=== PATIENT | female | born 1990 | race Hispanic/Latino ===

== ENCOUNTER 2018-03-27 07:57 | Observation (INO) | payer OTHER ==
[2018-03-27 08:06] VITALS: BMI 19.2
--- NOTE | 2018-03-27 08:19 | ED PDOC ---
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 was cutting avocado and cut her left 4th and 5th fingers. No numbness. Some tingles on the tips. Has pain on movement. No injury elsewhere. Last meal yesterday night. Tetnus utd. Past Medical History Reviewed: Nursing Documentation, Vital Signs Vital Signs: Last Vital Signs Temp 98.2 F 03/27/18 08:05 Pulse 114 H 03/27/18 08:05 Resp 18 03/27/18 08:05 BP 141/96 H 03/27/18 08:05 Pulse Ox 97 03/27/18 08:05 - Medical History PMH: No Chronic Diseases - Surgical History Surgical History: No Surg Hx - Family History Family History: States: Unknown Family Hx - Living Arrangements Living Arrangements: With Family - Immunization History Hx Tetanus Toxoid Vaccination: Yes (WITHIN 5 YRS) - Home Medications Home Medications: Ambulatory Orders Medication Instructions Recorded No Known Home Med 03/27/18 - Allergies Allergies/Adverse Reactions: Allergies Allergy/AdvReac Type Severity Reaction Status Date / Time No Known Allergies Allergy Verified 03/27/18 08:09 Review of Systems Constitutional: Negative for: Weakness Cardiovascular: Negative for: Chest Pain Respiratory: Negative for: Shortness of Breath Musculoskeletal: Positive for: Hand Pain. Negative for: Neck Pain, Shoulder Pain, Arm Pain, Leg Pain, Foot Pain Neurological: Negative for: Weakness, Numbness, Dizziness Physical Exam - Reviewed Nursing Documentation Reviewed: Yes Vital Signs Reviewed: Yes - Physical Exam Appears: Positive for: Non-toxic, No Acute Distress Head Exam: Positive for: ATRAUMATIC, NORMAL INSPECTION, NORMOCEPHALIC Skin: Positive for: Normal Color, Warm, DRY Neck: Positive for: Normal, Painless ROM Cardiovascular/Chest: Positive for: Regular Rate, Rhythm Respiratory: Positive for: CNT, Normal Breath Sounds Pulses-Radial (L): 2+ Extremity: Positive for: Tenderness (L 4th and 5th digits lacerations on ventral : 4th between PIP joint and DIP anastacia 2 cm deep angulated with tendon partially lacerated; 5th is above DIP joint 2 cm deep angulated.), Capillary Refill (less then 2 seconds ). Negative for: Normal ROM (limited at L 4th and 5th digits due to pain and possible tendon involvement from laceration; limited abduction) Neurologic/Psych: Positive for: Alert, Oriented - ECG O2 Sat by Pulse Oximetry: 97 Pulse Ox Interpretation: Normal - Radiology X-Ray: Interpreted by Me, Viewed By Me X-Ray Interpretation: No Acute Disease - Progress ED Course And Treament: 810: Spoke with Dr. Collins. He reviewed the images of pt. finger. Considering exam and images, he will take pt. to the OR for evaluation and treatment. 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 Will see pt. for Dr. Collins. Spoke with Dr. Arevalo. Will admit per Dr. Collins recommendation. Disposition - Clinical Impression Clinical Impression: Finger laceration involving tendon - Patient ED Disposition Is Patient to be Admitted: No Counseled Patient/Family Regarding: Studies Performed, Diagnosis - Disposition Disposition Time: 08:47 Condition: FAIR - Pt Status Changed To: Hospital Disposition Of: Observation - POA Present On Arrival: Falls Or Trauma
[2018-03-27 08:49] LABS: ALB/GLOB RATIO 1.4 (1.0-2.1); ALBUMIN 4.7 g/dL (3.5-5.0); ALT/SGPT 25 U/L (9-52); AST/SGOT 26 U/L (14-36); BLOOD UREA NITROGEN 18 mg/dl (7-17); CALCIUM 9.6 mg/dL (8.4-10.2); GFR AFRICAN-AMERICAN > 60; GFR NON-AFRICAN AMERICAN > 60
[2018-03-27 08:52] LABS: BASO % 0.2 % (0.0-2.0); EOS # 0.2 K/uL (0.0-0.7); EOS % 4.1 % (0.0-4.0); HEMOGLOBIN 12.5 g/dL (12.0-16.0); LYMPH # 2.2 K/uL (1.0-4.3); LYMPH % 54.3 % (20.0-40.0); MEAN CELL VOLUME 94.6 fl (81.0-99.0); MEAN CORPUSCULAR HGB CONC 33.8 g/dL (33.0-37.0); MEAN PLATELET VOLUME 9.7 fl (7.2-11.7); MONO # 0.3 K/uL (0.0-0.8); MONO % 7.7 % (0.0-10.0); NEUT # 1.4 K/uL (1.8-7.0); NEUT % 33.7 % (50.0-75.0); RBC 3.91 Mil/uL (3.80-5.20); RED CELL DISTRIBUTION WIDTH 12.7 % (11.5-14.5)
[2018-03-27 08:58] LABS: INR 1.1 (0.9-1.2); PROTHROMBIN TIME 11.9 Seconds (9.8-13.1)
[2018-03-27] MEDS ORDERED: Bupivacaine HCl 0.25% PF (30 ml) Inj ONE ×2 (08:59→09:59)
[2018-03-27] MEDS ORDERED: ceFAZolin IV 2 gm in Dextrose 0 GM/0 ML BAG IVPB ONE (08:59)
[2018-03-27] MEDS ORDERED: Lidocaine 2% MPF (5 ml) Inj ONE ×2 (08:59→09:59)
--- NOTE | 2018-03-27 09:54 | RAD ---
PROCEDURE: Left Hand Radiographs. HISTORY: pain and lac COMPARISON: None. FINDINGS: BONES: No acute fracture. JOINTS: Unremarkable. SOFT TISSUES: No radiopaque foreign body. OTHER FINDINGS: None. IMPRESSION: No demonstrated fracture, dislocation or evidence of radiopaque foreign body.
[2018-03-27] MEDS ORDERED: Propofol 10 mg/ml Inj (20 ML) ONE (10:07)
[2018-03-27] MEDS ORDERED: Midazolam 2 MG/2 ML VIAL ONE (10:07)
[2018-03-27] MEDS ORDERED: Lidocaine 2% MPF (5 ml) Inj INJ ONE (10:35)
[2018-03-27] MEDS ORDERED: Bupivacaine 0.25% Inj(30mL) IJ ONE (10:35)
[2018-03-27] MEDS ORDERED: Lactated Ringer's 1,000 ML IV ONE (10:46)
--- NOTE | 2018-03-27 11:23 | PCM.SURG1 ---
Surgeon's Initial Post Op Note - Surgeon's Notes Surgeon: Dr. Cervantes Human Resources Analyst: Dr. Call Type of Anesthesia: IV Sedation Anesthesia Administered By: Volodymyr Pre-Operative Diagnosis: Left 4th and 5th digit laceration Operative Findings: same, no injury to underlying tendons Post-Operative Diagnosis: same Operation Performed: Left 4th and 5th digit wound exploration and laceration repair Specimen/Specimens Removed: none Estimated Blood Loss: EBL {In ML}: 5 Blood Products Given: N/A Drains Used: No Drains Post-Op Condition: Good Date of Surgery/Procedure: 03/27/18 Time of Surgery/Procedure: 11:22
[2018-03-27 11:34] VITALS: TEMP 97.7; O2SAT 100
--- NOTE | 2018-03-27 11:35 | CP.PCM.CON ---
History of Present Illness - History of Present Illness History of Present Illness: Plastic Surgery - dr. Collins 27 yo F w/ no PMH who presents to ed after cutting her fingers accidently while she was cutting an avocado approx 1 hour ago today. Pt complains of pain in the Left 4th /5th digits at site of laceration. she has full ROM in the 4th/ 5th digits and complains of some tingling in the tips of the fingers. She denies any loss of sensation or loss of range of motion. 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 Review of Systems - Review of Systems All systems: reviewed and no additional remarkable complaints except (as per HPI ) Past Patient History - Past Social History Smoking Status: Never Smoked - PSYCHIATRIC Hx Substance Use: No - SURGICAL HISTORY Hx Surgeries: No - ANESTHESIA Hx Anesthesia: No Meds Allergies/Adverse Reactions: Allergies Allergy/AdvReac Type Severity Reaction Status Date / Time No Known Allergies Allergy Verified 03/27/18 08:09 - Medications Medications: Current Medications Acetaminophen (Tylenol 325mg Tab) 650 mg PO ONCE PRN PRN Reason: Pain, moderate (4-7) Ondansetron HCl (Zofran Inj) 4 mg IVP ONCE PRN PRN Reason: Nausea/Vomiting Stop: 03/27/18 13:22 Physical Exam - Constitutional Appears: No Acute Distress - Head Exam Head Exam: ATRAUMATIC, NORMAL INSPECTION, NORMOCEPHALIC - Eye Exam Eye Exam: Normal appearance - Respiratory Exam Respiratory Exam: NORMAL BREATHING PATTERN. absent: Respiratory Distress - Extremities Exam Additional comments: Left hand w/ approx 1cm laceration to the ventral 4th digit and 1.5com laceration to the ventral 5th digit, no obvious injury to the tendon appreciated - Neurological Exam Neurological exam: Alert, Oriented x3 - Psychiatric Exam Psychiatric exam: Normal Affect, Normal Mood - Skin Skin Exam: Dry, Normal Color, Warm Results - Vital Signs Recent Vital Signs: Last Vital Signs Temp 98.9 F 03/27/18 09:31 Pulse 89 03/27/18 09:31 Resp 19 03/27/18 09:31 BP 125/79 03/27/18 09:31 Pulse Ox 99 03/27/18 09:31 - Labs Result Diagrams: 03/27/18 08:30 03/27/18 08:30 Labs: Laboratory Results - last 24 hr 03/27/18 03/27/18 03/27/18 08:30 08:30 08:30 WBC 4.0 L RBC 3.91 Hgb 12.5 Hct 36.9 MCV 94.6 MCH 32.0 H MCHC 33.8 RDW 12.7 Plt Count 224 MPV 9.7 Neut % (Auto) 33.7 L Lymph % (Auto) 54.3 H [place] % (Auto) 7.7 Eos % (Auto) 4.1 H Baso % (Auto) 0.2 Neut # (Auto) 1.4 L Lymph # (Auto) 2.2 [place] # (Auto) 0.3 Eos # (Auto) 0.2 Baso # (Auto) 0.0 PT 11.9 INR 1.1 APTT 40.0 H Sodium 141 Potassium 4.1 Chloride 106 Carbon Dioxide 23 Anion Gap 16 BUN 18 H Creatinine 0.6 L Est GFR ( Amer) > 60 Est GFR (Non-Af Amer) > 60 Random Glucose 81 Calcium 9.6 Total Bilirubin 1.6 H AST 26 ALT 25 Alkaline Phosphatase 42 Total Protein 8.1 Albumin 4.7 Globulin 3.4 Albumin/Globulin Ratio 1.4 Assessment & Plan - Assessment and Plan (Free Text) Assessment: 27yo F w/ Left 4th and 5th digit laceration -OR exploration of wounds, possible tendon repair, laceration repair -D/C home post-op with pain medication, cover hand with plastic bag while showering, and F/U in office [address] eddie Call PGY4
[2018-03-27 12:11] VITALS: RESP 12
--- NOTE | 2018-03-27 12:24 | CP.PCM.HP ---
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 Patient is HD stable, scheduled for OR with Dr. Collins. Pt is low risk for low risk procedure. No acute distress. ROS: Per HPI, all other systems reviewed and neg PMH: denies PSH: denies FH: denies SH: denies tobacco, ETOH, IVDU, works as OT NKDA Vitals Reviewed GEN: WDWN, alert, cooperative HEENT: NCAT, PERRL, EOMI HEART: RRR, +S1S2, NO MRG LUNG: CTAB, NO WRR ABD: soft, NT, ND, No HSM, No masses EXT: normal pedal pulses, normal capillary refill. LACERATION 4TH 5TH LEFT METACARPALS. DRESSINGS C/D/I NEURO: awake, alert, no focal deficits SKIN: warm, dry PSYCH: normal mood, normal affect LABS Most Recent Lab Values WBC 4.0 K/uL (4.8-10.8) L 03/27/18 08:30 RBC 3.91 Mil/uL (3.80-5.20) 03/27/18 08:30 Hgb 12.5 g/dL (12.0-16.0) 03/27/18 08:30 Hct 36.9 % (34.0-47.0) 03/27/18 08:30 MCV 94.6 fl (81.0-99.0) 03/27/18 08:30 MCH 32.0 pg (27.0-31.0) H 03/27/18 08:30 MCHC 33.8 g/dL (33.0-37.0) 03/27/18 08:30 RDW 12.7 % (11.5-14.5) 03/27/18 08:30 Plt Count 224 K/uL (130-400) 03/27/18 08:30 MPV 9.7 fl (7.2-11.7) 03/27/18 08:30 Neut % (Auto) 33.7 % (50.0-75.0) L 03/27/18 08:30 Lymph % (Auto) 54.3 % (20.0-40.0) H 03/27/18 08:30 [place] % (Auto) 7.7 % (0.0-10.0) 03/27/18 08:30 Eos % (Auto) 4.1 % (0.0-4.0) H 03/27/18 08:30 Baso % (Auto) 0.2 % (0.0-2.0) 03/27/18 08:30 Neut # (Auto) 1.4 K/uL (1.8-7.0) L 03/27/18 08:30 Lymph # (Auto) 2.2 K/uL (1.0-4.3) 03/27/18 08:30 Hunt # (Auto) 0.3 K/uL (0.0-0.8) 03/27/18 08:30 Eos # (Auto) 0.2 K/uL (0.0-0.7) 03/27/18 08:30 Baso # (Auto) 0.0 K/uL (0.0-0.2) 03/27/18 08:30 PT 11.9 Seconds (9.8-13.1) 03/27/18 08:30 INR 1.1 (0.9-1.2) 03/27/18 08:30 APTT 40.0 Seconds (25.6-37.1) H 03/27/18 08:30 Sodium 141 mmol/l (132-148) 03/27/18 08:30 Potassium 4.1 MMOL/L (3.6-5.0) 03/27/18 08:30 Chloride 106 mmol/L (98-107) 03/27/18 08:30 Carbon Dioxide 23 mmol/L (22-30) 03/27/18 08:30 Anion Gap 16 (10-20) 03/27/18 08:30 BUN 18 mg/dl (7-17) H 03/27/18 08:30 Creatinine 0.6 mg/dl (0.7-1.2) L 03/27/18 08:30 Est GFR ( Amer) > 60 03/27/18 08:30 Est GFR (Non-Af Amer) > 60 03/27/18 08:30 Random Glucose 81 mg/dL (65-105) 03/27/18 08:30 Calcium 9.6 mg/dL (8.4-10.2) 03/27/18 08:30 Total Bilirubin 1.6 mg/dl (0.2-1.3) H 03/27/18 08:30 AST 26 U/L (14-36) 03/27/18 08:30 ALT 25 U/L (9-52) 03/27/18 08:30 Alkaline Phosphatase 42 U/L (38-126) 03/27/18 08:30 Total Protein 8.1 G/DL (6.3-8.2) 03/27/18 08:30 Albumin 4.7 g/dL (3.5-5.0) 03/27/18 08:30 Globulin 3.4 gm/dL (2.2-3.9) 03/27/18 08:30 Albumin/Globulin Ratio 1.4 (1.0-2.1) 03/27/18 08:30 IMAGING STUDIES HAND XR NO FX ASSESSMENT AND PLAN 27 year old female no past medical history presents to the ED after sustaining an acute, severe laceration to her L 4th and 5th metacarpals associated with mild tingling, while cutting an 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 Patient is HD stable, scheduled for OR with Dr. Collins. Pt is low risk for low risk procedure. No acute distress. Hand Laceration - OR with Dr. Collins - NV intact - pain control - likely DC home today with follow up Surgery and PCP in one week. IF PATIENT IS DISCHARGED HOME THIS WILL ALSO SERVE DISCHARGE SUMMARY. Present on Admission - Present on Admission Any Indicators Present on Admission: No Past Patient History - Past Social History Smoking Status: Never Smoked - PSYCHIATRIC Hx Substance Use: No - SURGICAL HISTORY Hx Surgeries: No - ANESTHESIA Hx Anesthesia: No Meds Allergies/Adverse Reactions: Allergies Allergy/AdvReac Type Severity Reaction Status Date / Time No Known Allergies Allergy Verified 03/27/18 08:09 Results - Vital Signs Recent Vital Signs: Last Vital Signs Temp 97.7 F 03/27/18 11:45 Pulse 54 L 03/27/18 11:45 Resp 15 03/27/18 11:45 BP 95/55 L 03/27/18 11:45 Pulse Ox 100 03/27/18 11:45 - Labs Result Diagrams: 03/27/18 08:30 03/27/18 08:30 Labs: Laboratory Results - last 24 hr 03/27/18 03/27/18 03/27/18 08:30 08:30 08:30 WBC 4.0 L RBC 3.91 Hgb 12.5 Hct 36.9 MCV 94.6 MCH 32.0 H MCHC 33.8 RDW 12.7 Plt Count 224 MPV 9.7 Neut % (Auto) 33.7 L Lymph % (Auto) 54.3 H [place] % (Auto) 7.7 Eos % (Auto) 4.1 H Baso % (Auto) 0.2 Neut # (Auto) 1.4 L Lymph # (Auto) 2.2 [place] # (Auto) 0.3 Eos # (Auto) 0.2 Baso # (Auto) 0.0 PT 11.9 INR 1.1 APTT 40.0 H Sodium 141 Potassium 4.1 Chloride 106 Carbon Dioxide 23 Anion Gap 16 BUN 18 H Creatinine 0.6 L Est GFR ( Amer) > 60 Est GFR (Non-Af Amer) > 60 Random Glucose 81 Calcium 9.6 Total Bilirubin 1.6 H AST 26 ALT 25 Alkaline Phosphatase 42 Total Protein 8.1 Albumin 4.7 Globulin 3.4 Albumin/Globulin Ratio 1.4
[2018-03-27 12:25] VITALS: BP 106/66; PULSE 56
--- NOTE | 2018-04-07 20:13 | OP ---
Copied To: Rob Collins MD Attending MD: Rob Collins MD PROCEDURE DATE: 03/27/2018 PREOPERATIVE DIAGNOSES: 1. Open wound, left ring finger (S61.205A). 2. Injury, digital nerve (S64.495A). 3. Open wound, left little finger (S61.207A). POSTOPERATIVE DIAGNOSES: 1. Open wound, left ring finger (S61.205A). 2. Injury, digital nerve (S64.495A). 3. Open wound, left little finger (S61.207A). PROCEDURES: 1. Repair open wound, left ring finger, CPT 93902. 2. Repair open wound, left little finger, CPT 69346. 3. Suture repair, digital nerve with CPT 10266. SURGEON: Rob Collins MD. CLINICAL NOTE: This 27-year-old female presented to the [facility] Emergency Room on 03/27/2018 after sustaining open wounds to her left ring and little fingers while cutting an avocado. There was suspicion of flexor tendon injury particularly in the ring finger where she had complete loss of sensation distal to the open wound. On x-ray, the patient had no fracture. Because management of the injury was outside the competence of the emergency room department, a Plastic Surgery consult was called. The nature of the injury and proposed repair was outlined to the patient. Informed consent outlined. Potential risks of failure and complications related to the proposed surgical repair was obtained prior to repairing these injuries. No guarantee of outcome was provided to the patient. OPERATIVE PROCEDURE: The patient was commenced on intravenous antibiotics prior to surgery. The patient was taken to the operating room as an emergency in the morning of admission. After sedation was induced, local anesthesia was obtained with a digital ring block using lidocaine with adrenaline. The operative field was then prepped and draped in the usual manner. Surgery was commenced by exploring the little finger, which required extension of the open wound to examine the tendon sheath and it was visually confirmed. The tendon sheath was intact and there was full range of motion of the finger. The wound was closed in layers with 4-0 nylon to the skin. Attention was then turned towards the ring finger and the finger was exsanguinated using a [place] drain to provide a clear field. The wound was extended into a triangular laterally based flap, which allowed complete exposure of the tendon sheath, which was intact. The radial neurovascular bundle was then explored on the transected digital nerve and located and repaired with 9-0 nylon. No attempt was made to repair the artery. Hemostasis was obtained, the flap repositioned and the wound closed in layers with 4-0 nylon to the skin. The wounds were then dressed in the usual manner and the patient was given discharge instructions to follow up in the office within the week and not to remove the dressings and splint. She was also given a prescription for Percocet for pain relief and Keflex for antibiotic coverage. Rob Collins MD
== END 2018-03-27 12:36 | disposition home or self-care (01) ==
LOC: H.ER 07:57 → H.ERHOLD 08:48
PROVIDERS: ADMIT Internal Medicine; ATTEND Internal Medicine
DX: S61.215A Laceration without foreign body of left ring finger without damage to nail, initial encounter (principal); S61.217A Laceration without foreign body of left little finger without damage to nail, initial encounter; W26.9XXA Contact with unspecified sharp object(s), initial encounter; S64.495A Injury of digital nerve of left ring finger, initial encounter
CPT/HCPCS: 13131; 64831; 73130; 80053; 81025; 85025; 85610; 85730; 96374; 99285; G0378; J0690; J1885; J2001; J2250; J2704; J3010; J7030; J7120